=== PATIENT | male | born 1980 | race Caucasian/White ===

== ENCOUNTER 2018-02-04 08:06 | Outpatient (CLI) | payer OTHER ==
[2018-02-04] MEDS ORDERED: Lidocaine 2% Jelly 5 ML TUBE ONE (09:00)
[2018-02-04] MEDS ORDERED: Sodium Chloride 0.9% 15 ML NEB ONE (09:00)
== END 2018-02-04 08:07 | disposition home or self-care (01) ==
LOC: WCC 08:06
PROVIDERS: ATTEND Family Medicine
DX: K94.13 Enterostomy malfunction (principal)
CPT/HCPCS: A4218

== ENCOUNTER 2018-02-20 13:53 | Outpatient (CLI) | payer OTHER ==
[2018-02-20] MEDS ORDERED: Sodium Chloride 0.9% 15 ML NEB ONE (15:00)
[2018-02-20] MEDS ORDERED: Lidocaine 2% PF 100 mg/5 ml Syringe ONE (15:00)
== END 2018-02-20 13:54 | disposition home or self-care (01) ==
LOC: WCC 13:53
PROVIDERS: ATTEND Family Medicine
DX: K94.13 Enterostomy malfunction (principal)
CPT/HCPCS: 99211; A4218; G0463; J2001

== ENCOUNTER 2018-03-06 13:09 | Outpatient (CLI) | payer OTHER ==
[2018-03-06] MEDS ORDERED: Lidocaine 2% PF 100 mg/5 ml Syringe ONE (13:28)
== END 2018-03-06 13:10 | disposition home or self-care (01) ==
LOC: WCC 13:09
PROVIDERS: ATTEND Family Medicine
DX: K94.13 Enterostomy malfunction (principal)
CPT/HCPCS: 99211; G0463; J2001

== ENCOUNTER 2018-03-20 14:00 | Outpatient (CLI) | payer OTHER ==
[2018-03-20] MEDS ORDERED: Sodium Chloride 0.9% 15 ML NEB ONE (15:00)
[2018-03-20] MEDS ORDERED: Lidocaine 4% Topical Sol 50 ML BOT ONE (15:00)
== END 2018-03-20 14:01 | disposition home or self-care (01) ==
LOC: WCC 14:00
PROVIDERS: ATTEND Family Medicine
DX: K94.13 Enterostomy malfunction (principal)
CPT/HCPCS: 99211; A4218; G0463

== ENCOUNTER 2018-04-03 12:51 | Outpatient (CLI) | payer OTHER ==
[2018-04-03] MEDS ORDERED: Sodium Chloride 0.9% 15 ML NEB ONE (16:06)
[2018-04-03] MEDS ORDERED: Lidocaine 2% PF 100 mg/5 ml Syringe ONE (16:06)
== END 2018-04-03 12:52 | disposition home or self-care (01) ==
LOC: WCC 12:51
PROVIDERS: ATTEND Family Medicine
DX: K94.13 Enterostomy malfunction (principal)
CPT/HCPCS: 99211; A4218; G0463; J2001

== ENCOUNTER 2018-04-25 14:58 | Outpatient (CLI) | payer OTHER ==
[2018-04-25] MEDS ORDERED: Sodium Chloride 0.9% 15 ML NEB ONE (19:43)
== END 2018-04-25 14:59 | disposition home or self-care (01) ==
LOC: WCC 14:58
PROVIDERS: ATTEND Family Medicine
DX: K94.13 Enterostomy malfunction (principal)
CPT/HCPCS: 99211; A4218; G0463

== ENCOUNTER 2021-01-14 21:58 | Inpatient (IN) | payer MEDICARE, MEDICAID ==
[~2021-01-14 21:58] MED LIST: Iopamidol-370 76% 500 ML 1 ML ONE
[2021-01-14] MEDS ORDERED: Morphine 4 MG/ML VIAL ONE (22:14)
[2021-01-14] MEDS ORDERED: Promethazine HCl 25 MG/ML VIAL ONE (22:14)
[2021-01-14 22:32] LABS: #Basophils 0.1 thou/uL (0.0-0.2); #Eosinphils 0.1 thou/uL (0.0-0.7); #Lymphocytes 1.3 thou/uL (1.20-3.40); %Basophils 0.4 % (0.0-1.0); %Eosinophils 0.8 % (0.0-10.0); %Lymphocytes 7.3 % (21.0-51.0); %Monocytes 5.8 % (0.0-10.0); %Neutrophils 85.7 % (42.0-75.0); Hemoglobin 13.9 g/dL (14.0-18.0); Mean Corpuscular HGB CONC 34.3 g/dL (32.0-36.0); Mean Corpuscular Volume 90.3 fL (78.0-98.0); Mean Platelet Volume 7.8 fL (7.4-10.4); Platelet Count 305 thou/uL (130-400); RBC Distribution Width 12.9 % (11.5-14.5); White Blood Cell (WBC) Count 17.5 thou/uL (4.8-10.8)
[2021-01-14 23:00] LABS: ALT (SGPT) 12 U/L (8-55); AST (SGOT) 17 U/L (5-34); Albumin 3.9 g/dL (3.5-5.0); Alkaline Phosphatase 85 U/L (40-110); Anion Gap 12 mmol/L (10-20); BUN (Urea Nitrogen) 13 mg/dL (8.9-20.6); Bilirubin, Total 0.4 mg/dL (0.2-1.2); Calc. Creatinine Clearance 0 mL/min (70-130); Calcium 9.4 mg/dL (7.8-10.44); Carbon Dioxide 25 mmol/L (22-29); Chloride 102 mmol/L (98-107); Globulin 3.3 g/dL (2.4-3.5); Glucose 97 mg/dL (70-105); Lipase 48 U/L (8-78); Potassium 4.2 mmol/L (3.5-5.1); Protein, Total 7.2 g/dL (6.0-8.3); Sodium 135 mmol/L (136-145)
[2021-01-15] MEDS ORDERED: Acetaminophen 325 MG TAB PO PRN (00:55)
[2021-01-15] MEDS ORDERED: Ondansetron ODT 4 MG TAB PO PRN (00:55)
[2021-01-15] MEDS ORDERED: Acetaminophen 650 MG Suppository PR PRN (00:55)
[2021-01-15 02:14] VITALS: BMI 18.4
[2021-01-15] MEDS ORDERED: Piperacillin/Tazobactam 3.375 GM in Sodium Chloride 0.9% 100 ML IVPB SCH (02:15)
[2021-01-15] MEDS: Ondansetron PF 4 MG/2 ML Vial IVP PRN ×2 (02:20→21:39)
[2021-01-15] MEDS: Morphine 4 MG/ML VIAL SLOW IVP PRN ×5 (02:21→21:39)
[2021-01-15 03:01] LABS: #Eosinphils 0.1 thou/uL (0.0-0.7); #Lymphocytes 1.8 thou/uL (1.20-3.40); #Monocytes 0.9 thou/uL (0.11-0.59); #Neutrophils 10.9 thou/uL (1.40-6.50); %Basophils 0.3 % (0.0-1.0); %Eosinophils 0.6 % (0.0-10.0); %Lymphocytes 12.9 % (21.0-51.0); %Monocytes 6.6 % (0.0-10.0); %Neutrophils 79.7 % (42.0-75.0); Hemoglobin 13.1 g/dL (14.0-18.0); Mean Corpuscular HGB CONC 33.6 g/dL (32.0-36.0); Mean Corpuscular Hemoglobin 30.5 pg (27.0-31.0); Mean Corpuscular Volume 90.7 fL (78.0-98.0); Mean Platelet Volume 7.7 fL (7.4-10.4); Platelet Count 273 thou/uL (130-400); RBC Distribution Width 12.8 % (11.5-14.5); White Blood Cell (WBC) Count 13.7 thou/uL (4.8-10.8)
[2021-01-15 03:22] LABS: Anion Gap 10 mmol/L (10-20); BUN (Urea Nitrogen) 10 mg/dL (8.9-20.6); Calc. Creatinine Clearance 95 mL/min (70-130); Calcium 8.8 mg/dL (7.8-10.44); Carbon Dioxide 28 mmol/L (22-29); Chloride 102 mmol/L (98-107); Glucose 85 mg/dL (70-105); Sodium 136 mmol/L (136-145)
[2021-01-15] MEDS: Sodium Chloride 0.9% 1,000 ML IV SCH ×3 (03:37→18:01)
[2021-01-15 04:31] LABS: SARS-CoV-2 NAA Rapid Test Not Detected (NotDetected)
[2021-01-15] MEDS: Piperacillin/Tazobactam 3.375 GM in Sodium Chloride 0.9% 100 ML IVPB SCH ×3 (05:56→21:39)
[2021-01-15 07:25] LABS: Bacteria/HPF None Seen HPF (None Seen); Bilirubin Negative (Negative); Blood, Urine Negative (Negative); Clarity Clear (Clear); Glucose, Urine (Dipstick) Normal (Negative); Ketone, Urine Negative (Negative); Leukocyte Negative Leu/uL (Negative); Nitrite Negative (Negative); Protein, Urine (Dipstick) Negative (Neg-Trace); RBC/HPF 0-3 HPF (0-3); Squamous Epithelial None Seen HPF (0-3); Urobilinogen Normal mg/dL (Less than 2); WBC/HPF 0-3 HPF (0-3); pH, Urine 5.5 (5.0-9.0)
[2021-01-15 07:29] LABS: Urine Culture Reflex No No
[2021-01-15] MEDS: Enoxaparin Sodium 40 MG/0.4 ML SYRINGE SC SCH (08:29)
[2021-01-15] MEDS: methylPREDNISolone Sod Succ 40 MG VIAL IVP SCH ×2 (10:27→18:01)
[2021-01-16] MEDS: methylPREDNISolone Sod Succ 40 MG VIAL IVP SCH ×3 (03:45→18:24)
[2021-01-16] MEDS: Morphine 4 MG/ML VIAL SLOW IVP PRN ×4 (03:45→18:24)
[2021-01-16] MEDS: Sodium Chloride 0.9% 1,000 ML IV SCH ×3 (03:46→18:24)
[2021-01-16] MEDS: Piperacillin/Tazobactam 3.375 GM in Sodium Chloride 0.9% 100 ML IVPB SCH ×3 (04:55→21:06)
[2021-01-16] MEDS: Enoxaparin Sodium 40 MG/0.4 ML SYRINGE SC SCH (09:54)
[2021-01-17] MEDS: Morphine 4 MG/ML VIAL SLOW IVP PRN ×6 (00:23→22:16)
[2021-01-17] MEDS: methylPREDNISolone Sod Succ 40 MG VIAL IVP SCH ×3 (04:15→18:10)
[2021-01-17] MEDS: Sodium Chloride 0.9% 1,000 ML IV SCH ×3 (04:16→20:15)
[2021-01-17] MEDS: Piperacillin/Tazobactam 3.375 GM in Sodium Chloride 0.9% 100 ML IVPB SCH ×3 (06:16→22:15)
[2021-01-17] MEDS: Enoxaparin Sodium 40 MG/0.4 ML SYRINGE SC SCH (09:29)
[2021-01-18] MEDS: Ondansetron PF 4 MG/2 ML Vial IVP PRN (02:12)
[2021-01-18] MEDS: Morphine 4 MG/ML VIAL SLOW IVP PRN ×6 (02:12→23:54)
[2021-01-18] MEDS: methylPREDNISolone Sod Succ 40 MG VIAL IVP SCH ×3 (02:13→18:19)
[2021-01-18] MEDS: Sodium Chloride 0.9% 1,000 ML IV SCH ×3 (06:15→19:58)
[2021-01-18] MEDS: Enoxaparin Sodium 40 MG/0.4 ML SYRINGE SC SCH (08:29)
[2021-01-18] MEDS: Piperacillin/Tazobactam 3.375 GM in Sodium Chloride 0.9% 100 ML IVPB SCH ×3 (08:29→22:10)
[2021-01-18] MEDS ORDERED: MD-Gastroview 120 ML BOT ONE (10:33)
[2021-01-19] MEDS: Morphine 4 MG/ML VIAL SLOW IVP PRN ×4 (03:48→19:55)
[2021-01-19] MEDS: methylPREDNISolone Sod Succ 40 MG VIAL IVP SCH ×3 (03:48→17:25)
[2021-01-19] MEDS: Sodium Chloride 0.9% 1,000 ML IV SCH ×3 (03:49→17:24)
[2021-01-19] MEDS: Piperacillin/Tazobactam 3.375 GM in Sodium Chloride 0.9% 100 ML IVPB SCH ×2 (05:36→13:39)
[2021-01-19 06:13] LABS: #Monocytes 0.5 thou/uL (0.11-0.59); #Neutrophils 5.5 thou/uL (1.40-6.50); %Basophils 0.3 % (0.0-1.0); %Eosinophils 0.2 % (0.0-10.0); %Lymphocytes 13.8 % (21.0-51.0); %Monocytes 7.2 % (0.0-10.0); %Neutrophils 78.5 % (42.0-75.0); Hemoglobin 11.2 g/dL (14.0-18.0); Mean Corpuscular HGB CONC 33.1 g/dL (32.0-36.0); Mean Corpuscular Hemoglobin 30.3 pg (27.0-31.0); Mean Corpuscular Volume 91.4 fL (78.0-98.0); Mean Platelet Volume 8.3 fL (7.4-10.4); Platelet Count 244 thou/uL (130-400); RBC Distribution Width 12.9 % (11.5-14.5); Red Blood Cell (RBC) Count 3.69 mill/uL (4.70-6.10)
[2021-01-19 06:34] LABS: ALT (SGPT) 22 U/L (8-55); AST (SGOT) 12 U/L (5-34); Albumin 3.1 g/dL (3.5-5.0); Alkaline Phosphatase 59 U/L (40-110); Anion Gap 10 mmol/L (10-20); BUN (Urea Nitrogen) 23 mg/dL (8.9-20.6); Bilirubin, Total 0.2 mg/dL (0.2-1.2); Calc. Creatinine Clearance 84 mL/min (70-130); Carbon Dioxide 30 mmol/L (22-29); Chloride 104 mmol/L (98-107); Globulin 2.4 g/dL (2.4-3.5); Glucose 96 mg/dL (70-105); Protein, Total 5.5 g/dL (6.0-8.3); Sodium 140 mmol/L (136-145)
[2021-01-19] MEDS: Enoxaparin Sodium 40 MG/0.4 ML SYRINGE SC SCH (08:19)
[2021-01-19] MEDS ORDERED: Morphine 4 MG/ML VIAL SLOW IVP PRN (11:58)
[2021-01-20] MEDS: Piperacillin/Tazobactam 3.375 GM in Sodium Chloride 0.9% 100 ML IVPB SCH ×3 (00:30→16:21)
[2021-01-20] MEDS: methylPREDNISolone Sod Succ 40 MG VIAL IVP SCH ×3 (03:30→17:00)
[2021-01-20] MEDS: Sodium Chloride 0.9% 1,000 ML IV SCH (06:27)
[2021-01-20] MEDS: Enoxaparin Sodium 40 MG/0.4 ML SYRINGE SC SCH (09:01)
[2021-01-20] MEDS: HYDROcodone/Acetaminophen 5/325 mg Tablet PO PRN (16:59)
[2021-01-21] MEDS: HYDROcodone/Acetaminophen 5/325 mg Tablet PO PRN (00:04)
[2021-01-21] MEDS: Piperacillin/Tazobactam 3.375 GM in Sodium Chloride 0.9% 100 ML IVPB SCH ×2 (00:05→08:06)
[2021-01-21] MEDS ORDERED: predniSONE 20 MG TAB PO SCH (08:00)
[2021-01-21] MEDS: Enoxaparin Sodium 40 MG/0.4 ML SYRINGE SC SCH (08:06)
[2021-01-21 11:29] VITALS: BP 113/73; TEMP 98.3
== END 2021-01-21 13:50 | disposition home or self-care (01) | DRG 872 ==
LOC: ERS 21:58 → ERHOLD 23:59 → SURG A 01-15 01:16
PROVIDERS: ADMIT Student in an Organized Health Care Education/Training Program; ATTEND Internal Medicine
PROC: 0D9670Z Drainage of Stomach with Drainage Device, Via Natural or Artificial Opening (ICD-10-PCS; principal; 2021-01-14)
DX: A41.9 Sepsis, unspecified organism (principal); Z20.822 Contact with and (suspected) exposure to COVID-19; K50.012 Crohn's disease of small intestine with intestinal obstruction; E87.1 Hypo-osmolality and hyponatremia; E44.0 Moderate protein-calorie malnutrition; Z68.1 Body mass index [BMI] 19.9 or less, adult; E86.0 Dehydration; D64.9 Anemia, unspecified; F17.210 Nicotine dependence, cigarettes, uncomplicated; F12.10 Cannabis abuse, uncomplicated; Z87.11 Personal history of peptic ulcer disease; Z93.3 Colostomy status
CPT/HCPCS: 36415; 71045; 74177; 74250; 80048; 80053; 81001; 83605; 83690; 85025; 87040; 96361; 96374; 96375; J1650; J2270; J2405; J2543; J2550; J2920; J3490; J7050; J7512; Q9963; Q9967; U0002

== ENCOUNTER 2023-03-20 08:24 | Outpatient (CLI) | payer MEDICARE, MEDICAID ==
[2023-03-20] MEDS ORDERED: Iopamidol 370 76% 100 ML VIAL ONE (10:02)
== END 2023-03-20 08:25 | disposition home or self-care (01) ==
LOC: CT 08:24
PROVIDERS: ATTEND Physician Assistant Medical
DX: K50.90 Crohn's disease, unspecified, without complications (principal); Z98.890 Other specified postprocedural states
CPT/HCPCS: 74178; Q9967

== ENCOUNTER 2024-08-15 11:30 | Outpatient (CLI) | payer MEDICARE, MEDICAID ==
[2024-08-15 12:35] LABS: #Basophils 0.07 10x3/uL (0.0-0.2); #Eosinophils 0.35 10x3/uL (0.0-0.7); #Monocytes 0.64 10x3/uL (0.11-0.59); %Basophils 0.9 % (0.0-1.0); %Eosinophils 4.3 % (0.0-10.0); %Lymphocytes 26.3 % (21.0-51.0); %Monocytes 7.9 % (0.0-10.0); %Neutrophils 60.4 % (42.0-75.0); Hematocrit 39.8 % (42.0-52.0); Hemoglobin 12.6 g/dL (14.0-18.0); Mean Corpuscular HGB CONC 31.7 g/dL (32.0-36.0); Mean Corpuscular Hemoglobin 27.9 pg (27.0-31.0); Mean Corpuscular Volume 88.1 fL (78.0-98.0); Mean Platelet Volume 10.5 fL (7.4-10.4); Platelet Count 344 10x3/uL (130-400); RBC Distribution Width 14.7 % (11.5-14.5); Red Blood Cell (RBC) Count 4.52 mill/uL (4.70-6.10); White Blood Cell (WBC) Count 8.11 10x3/uL (4.8-10.8)
[2024-08-15 13:05] LABS: Anion Gap 9 mmol/L (10-20); BUN (Urea Nitrogen) 8 mg/dL (8.9-20.6); Calc. Creatinine Clearance 0 mL/min (70-130); Calcium 9.2 mg/dL (7.8-10.44); Carbon Dioxide 27 mmol/L (22-29); Chloride 105 mmol/L (98-107); Estimated GFR 88; Glucose 83 mg/dL (70-105); Potassium 3.7 mmol/L (3.5-5.1); Sodium 137 mmol/L (136-145)
[2024-08-15 13:07] LABS: Hemoglobin A1c 5.2 % (4.0-6.0)
== END 2024-08-15 11:31 | disposition home or self-care (01) ==
LOC: LABBT 11:30
PROVIDERS: ATTEND Surgery
DX: Z01.818 Encounter for other preprocedural examination (principal); K50.919 Crohn's disease, unspecified, with unspecified complications; K94.13 Enterostomy malfunction
CPT/HCPCS: 80048; 83036; 85025; 93005; 93010